=== PATIENT | female | born 1995 | race Caucasian/White ===

== ENCOUNTER 2016-04-16 16:56 | Emergency (ER) | payer MEDICAID ==
--- NOTE | 2016-04-16 20:44 | ERNOTE ---
ENT HPI Date of Service: 04/16/16 Time Seen by Provider: 04/16/16 20:18 Source: patient Exam Limitations: no limitations - Immun/Allergies/Home Medications Immunizations: IMMUNIZATION HX Immunizations Up to Date No History of Influenza Vaccine No Hx Pneumococcal Vaccination No Allergies/Adverse Reactions: Allergies Allergy/AdvReac Type Severity Reaction Status Date / Time nickel [Nickel] Allergy Intermediate Hives Verified 04/16/16 18:39 amoxicillin Allergy Hives Verified 04/16/16 18:39 amoxicillin trihydrate Allergy Hives Verified 04/16/16 18:39 [From Amoxil] Penicillins Allergy Swelling Verified 04/16/16 18:39 of Face meclizine AdvReac Headache Verified 04/16/16 18:39 Home Medications: HOME MEDICATIONS Citalopram Hydrobromide [Celexa] 10 mg PO DAILY #30 tablet 04/16/16 [Last Taken Unknown] - History of Present Illness Narrative: Pt. comes in with c/o chronic R ear fullness and dizziness for three months. Pt. has been seen in the [facility] several times for this and been diagnosed with an inner ear dysfunction. Pt. denies any significant change since onset of symptoms or any alleviating or aggravating factors and states that she is tired all of the time, hungry all of the time, and very stressed out to where she is forgetful. Pt. denies any recent illness. Review of Systems - Review of Systems Constitutional: Present: weakness, fatigue, malaise EYE: Present: no symptoms reported ENT: Present: ear pain - R, other - wisdom teeth coming in Respiratory: Present: no symptoms reported. Absent: shortness of breath, cough , wheezing Cardiology: Present: no symptoms reported. Absent: chest pain, palpitations, edema Gastrointestinal/Abdominal: Present: no symptoms reported. Absent: nausea, vomiting, diarrhea Genitourinary: Present: no symptoms reported. Absent: frequency, pain, dysuria , decreased urinary output Musculoskeletal: Present: no symptoms reported. 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 No infection noted at this time. Neck: Present: normal inspection, nontender. Absent: lymphadenopathy (R), lymphadenopathy (L) Respiratory: Present: no respiratory distress, normal breath sounds, no accessory muscle use, chest nontender, lungs clear Cardiovascular/Chest: Present: regular rate, rhythm, no murmur, normal peripheral pulses Gastrointestinal/Abdominal: Present: normal bowel sounds, nontender, nondistended, soft, no organomegaly Back Exam: Present: normal inspection Extremity Exam: Present: normal inspection Neurological Exam: Present: alert, oriented, normal mood/affect, no motor/ sensory deficits, tire mounter II-XII nml as tested, normal cerebellar test Skin Exam: Present: normal color, warm/dry. Absent: pallor, skin rash ED Progress - Results and Orders Patient's Lab Results:: I have reviewed the patient's lab results. - Vital Signs Patient's Vital Signs:: I have reviewed the patient's vital signs. Vital Signs: Vital Signs 04/16/16 18:31 Temperature 36.5 C Pulse Rate 74 Respiratory 18 Rate Blood Pressure 98/49 O2 Sat by Pulse 100 Oximetry - Progress/Reassessment Chief Complaint: Sore Throat Departure Clinical Impression: Pain, dental Adjustment disorder Qualifiers: Adjustment disorder type: with depressed mood Qualified Code(s): F43.21 - Adjustment disorder with depressed mood - Departure Disposition: Home self-care Condition: Good Instructions: Dysphoria Additional Instructions: Please start exercising daily. Eat mixed balance diet. Increase fluid intake. Follow up with dentist and Dr Cummings in 2-3 days. Referrals: Kim Cummings MD [Primary Care Provider] - Prescriptions: Citalopram Hydrobromide [Celexa] 10 mg PO DAILY #30 tablet
[2016-04-16 20:50] LABS: Hemoglobin 13.8 gm/dL (12.5-16.0); Mean Cell Volume 91.1 fl (78-100); Mean Corpuscular Hemoglobin 31.4 pg (27-31); Mean Corpuscular Hgb Conc 34.5 g/dl (32-36); Neutrophil # 2.3 K/mm3 (1.3-6.0); Neutrophil % 51.8 % (42-75.0); Platelet Count 194 K/mm3 (150-450); Red Blood Count 4.39 M/mm3 (4.2-5.4); Red Cell Distribution Width 11.6 % (11.5-14.0); White Blood Count 4.5 K/mm3 (4.0-10.5)
[2016-04-16 21:00] LABS: Urine Bilirubin Negative (NEGATIVE); Urine Blood Negative /ul (NEGATIVE); Urine Ketone Negative (NEGATIVE); Urine Nitrite Negative (NEGATIVE); Urine Protein Negative (NEGATIVE); Urine Specific Gravity >=1.030 SP.GR. (1.005-1.010); Urine Urobilinogen Normal (NORMAL)
[2016-04-16 21:09] LABS: Urine Color Yellow
[2016-04-16 21:10] LABS: Urine Appearance Slightly Cloudy; Urine Bacteria 1+; Urine RBC None Seen /hpf (0-5); Urine WBC None Seen /hpf (0-5)
[2016-04-16 21:18] LABS: Albumin * 3.8 gm/dl (3.4-5.0); Anion Gap 12.6 mmol/L (6.8-13.8); BUN/Creatinine Ratio 19.7 (9.0-21.6); Bilirubin, Total 0.5 mg/dL (0.0-1.1); Ca. Corrected For Albumin 8.4 mg/dL (8.4-10.2); Calcium * 8.6 mg/dL (7.9-10.9); Potassium 3.6 mmol/L (3.4-4.6); TSH * 1.65 uIU/mL (0.358-3.74); Total Protein 6.6 gm/dL (6.2-8.2)
[2016-04-16 21:56] VITALS: BP 104/54
== END 2016-04-16 22:10 | disposition home or self-care (01) ==
LOC: ER 16:56
DX: K08.89 Other specified disorders of teeth and supporting structures (principal); F43.21 Adjustment disorder with depressed mood; F17.210 Nicotine dependence, cigarettes, uncomplicated; Z87.440 Personal history of urinary (tract) infections; R53.83 Other fatigue

== ENCOUNTER 2016-04-25 19:25 | Emergency (ER) | payer MEDICAID ==
[2016-04-25 19:32] VITALS: BP 118/63
[2016-04-25] MEDS ORDERED: IBUPROFEN 600 MG TABLET PO ONE (19:50)
[2016-04-25] MEDS ORDERED: ACETAMINOPHEN 500 MG TABLET PO ONE (19:50)
[2016-04-25] MEDS ORDERED: CLINDAMYCIN HCL 150 MG CAPSULE PO ONE (19:50)
[2016-04-25] MEDS ORDERED: IBUPROFEN 600 MG TABLET ONE (19:53)
[2016-04-25] MEDS ORDERED: CLINDAMYCIN HCL 150 MG CAPSULE ONE (19:54)
--- NOTE | 2016-04-25 19:54 | ERNOTE ---
ENT HPI Date of Service: 04/25/16 Presenting Symptoms: dental pain, other - Sinus pain Time Seen by Provider: 04/25/16 19:39 Source: patient, RN notes reviewed Exam Limitations: no limitations - Immun/Allergies/Home Medications Immunizations: IMMUNIZATION HX Immunizations Up to Date No History of Influenza Vaccine No Hx Pneumococcal Vaccination No Allergies/Adverse Reactions: Allergies Allergy/AdvReac Type Severity Reaction Status Date / Time nickel [Nickel] Allergy Intermediate Hives Verified 04/16/16 18:39 amoxicillin Allergy Hives Verified 04/16/16 18:39 amoxicillin trihydrate Allergy Hives Verified 04/16/16 18:39 [From Amoxil] Penicillins Allergy Swelling Verified 04/16/16 18:39 of Face meclizine AdvReac Headache Verified 04/16/16 18:39 Home Medications: HOME MEDICATIONS Clindamycin HCl [Cleocin HCl] 300 mg PO QID #28 capsule 04/25/16 [Last Taken Unknown] - History of Present Illness Narrative: 20 y/o female to ED for sinus pain that began 2 days ago. She reports burning in her right nasal passage and maxillary sinus. She is also having pain between teeth #3 and 4. She reports that she is getting her wisdom teeth extracted next month. She took Tylenol and ibuprofen for pain yesterday, but has taken nothing today for her pain that she is rating as 9/10. ENT Location: Present: nose, dental, facial Associated Symptoms - ENT: Reports: malaise, poor solid intake, nasal congestion /drainage, facial pain/swelling, tooth pain, headache. Denies: fever, poor fluid intake, cough, voice change, sore throat Review of Systems - Review of Systems Constitutional: Present: See HPI EYE: Absent: eye pain, vision changes ENT: Present: nose pain, nose congestion, nasal drainage. Absent: ear pain, ear discharge, sore throat Respiratory: Absent: shortness of breath, cough Cardiology: Present: no symptoms reported Gastrointestinal/Abdominal: Absent: nausea, vomiting Genitourinary: Absent: other - possible Musculoskeletal: Absent: muscle pain, neck pain Skin: Absent: rash, lesions, lumps Neurological: Present: headache, dizziness/light-headedness Endocrine: Present: no symptoms reported Hematologic/Lymphatic: Present: no symptoms reported Psych: Present: no symptoms reported - Patient's Past Medical History Patient History - Medical: Anxiety, Depression, Migraines, UTI'S Patient History - Cardiac/Respiratory: No pertinent hx Patient History - Cancer: No Hx of Cancer Patient History - Surgical Procedures: T & A LMP (females 10-50): Implanaon - Social History Living Situations: home Smoking Status: Current every day smoker Alcohol Use: occasionally Drug Use: marijuana Physical Exam - Physical Exam General Appearance: Present: wd/wn, alert, no apparent distress Eye Exam: Normal inspection: bilateral, PERRL: bilateral Ears, Nose, Throat: Present: hearing grossly normal, normal pharynx, other - filling and new cavity in #3, maxillary sinus region tender to palpation. Absent: abnormal TM (R), abnormal TM (L), nasal congestion Neck: Present: normal inspection, nontender, supple Respiratory: Present: no respiratory distress, normal breath sounds, no accessory muscle use, lungs clear Cardiovascular/Chest: Present: regular rate, rhythm, no murmur Extremity Exam: Present: normal inspection, no edema Neurological Exam: Present: alert, oriented, normal mood/affect, no motor/ sensory deficits Skin Exam: Present: normal color, warm/dry ED Progress - Vital Signs Patient's Vital Signs:: I have reviewed the patient's vital signs. Vital Signs: Vital Signs 04/25/16 19:27 Temperature 36.7 C Pulse Rate 116 H Respiratory 18 Rate Blood Pressure 118/63 O2 Sat by Pulse 100 Oximetry - Progress/Reassessment Chief Complaint: Dental Problem Progress:: Unchanged Departure Clinical Impression: Infected dental caries, Sinus pain - Departure Disposition: Home Follow Up Needed Condition: Good Instructions: Dental Caries, [id number] Additional Instructions: Tylenol and/or ibuprofen for pain See a dentist Nasal saline spray for congestion Prescriptions: Clindamycin HCl [Cleocin HCl] 300 mg PO QID #28 capsule
== END 2016-04-25 20:00 | disposition home or self-care (01) ==
LOC: ER 19:25
DX: J34.89 Other specified disorders of nose and nasal sinuses (principal); K02.9 Dental caries, unspecified; K04.7 Periapical abscess without sinus; F17.210 Nicotine dependence, cigarettes, uncomplicated

== ENCOUNTER 2017-01-22 20:31 | Emergency (ER) | payer MEDICAID ==
[2017-01-22 20:53] LABS: Urine Bilirubin Negative (NEGATIVE); Urine Blood Negative /ul (NEGATIVE); Urine Ketone Negative (NEGATIVE); Urine Nitrite Negative (NEGATIVE); Urine Protein Negative (NEGATIVE); Urine Specific Gravity 1.025 SP.GR. (1.005-1.010); Urine Urobilinogen Normal (NORMAL)
[2017-01-22] MEDS ORDERED: KETOROLAC TROMETHAMINE 60 MG/2 ML VIAL IM ONE ×2 (21:01→21:03)
[2017-01-22] MEDS ORDERED: PROMETHAZINE HCL 25 MG/ML AMPUL IM ONE (21:01)
--- NOTE | 2017-01-22 21:02 | ERNOTE ---
ER Female HPI Date of Service: 01/22/17 Stated Complaint: PELVIC PAIN Presenting Symptoms: pelvic pain Time Seen by Provider: 01/22/17 20:55 Source: patient, RN notes reviewed, past records Exam Limitations: no limitations Immunizations: IMMUNIZATION HX Immunizations Up to Date Yes History of Influenza Vaccine No Hx Pneumococcal Vaccination No Allergies/Adverse Reactions: Allergies nickel [Nickel] Allergy (Intermediate, Verified 04/16/16 18:39) Hives amoxicillin Allergy (Verified 04/16/16 18:39) Hives amoxicillin trihydrate [From Amoxil] Allergy (Verified 04/16/16 18:39) Hives Penicillins Allergy (Verified 04/16/16 18:39) Swelling of Face hives meclizine Adverse Reaction (Verified 04/16/16 18:39) Headache Home Medications: HOME MEDICATIONS Dextroamphetamine/Amphetamine [Adderall 15 mg Tablet] 15 mg PO BID 01/22/17 [ Last Taken Unknown] clonazePAM [Klonopin] 1 mg PO HS 01/22/17 [Last Taken Unknown] clonazePAM [Klonopin] 1 mg PO PRN PRN 01/22/17 [Last Taken Unknown] metroNIDAZOLE [Flagyl] 500 mg PO Q12H #14 tab 01/22/17 [Last Taken Unknown] - History of Present Illness Narrative: 21 year old female presents to the ED for pelvic pain that has been ongoing for several months. She was seen in gynecology on 12/28/16. She was treated for PID with Rocephin and Zithromax without improvement. She was tested for gonorrhea and chlamydia. Both were negative. She has a Nexplanon. She has had this for approximately 18 months and has irregular menses. She denies vaginal discharge or itching/irritation. She does report dyspareunia. Timing: Present: getting worse, intermittent Quality: Present: severe, cramping Onset Location: Present: suprapubic Radiation: Present: none Sexual [place] History: Present: less than 2 months ago, single partner Prior Treatment: Present: recently seen, treated by physician Review of Systems - Review of Systems Constitutional: Absent: fever, chills, malaise EYE: Present: no symptoms reported ENT: Present: no symptoms reported Respiratory: Present: no symptoms reported Cardiology: Present: no symptoms reported Gastrointestinal/Abdominal: Present: nausea. Absent: vomiting, abdominal pain Genitourinary: Absent: frequency, dysuria, discharge Musculoskeletal: Absent: back pain, muscle pain Skin: Absent: lesions, lumps, change in color Neurological: Absent: headache, dizziness/light-headedness Endocrine: Present: no symptoms reported Hematologic/Lymphatic: Present: no symptoms reported Psych: Present: no symptoms reported - Patient's Past Medical History Patient History - Medical: Anxiety, Depression, Migraines, UTI'S Patient History - Cardiac/Respiratory: No pertinent hx Patient History - Cancer: No Hx of Cancer Patient History - Surgical Procedures: T & A Patient History - Other: None LMP (females 10-50): last week LMP (Calendar): 01/17/17 - Social History Living Situations: home Psych History: Hx of Anxiety, Hx of Depression Smoking Status: Current every day smoker Have you smoked in the past 12 months: Yes Do you dip or chew tobacco: No Alcohol Use: sober Drug Use: none - Immunizations Immunizations Up to Date: Yes Hx Pneumococcal Vaccination: No History of Influenza Vaccine: No Physical Exam - Physical Exam General Appearance: Present: wd/wn, alert, mild distress, other - tearful, appears uncomfortable Neck: Present: normal inspection, nontender, supple Respiratory: Present: no respiratory distress, normal breath sounds, no accessory muscle use, lungs clear Cardiovascular/Chest: Present: regular rate, rhythm, no murmur Gastrointestinal/Abdominal: Present: normal bowel sounds, nondistended, soft, tenderness - suprapubic. Absent: rebound, mass Pelvic Exam: Present: discharge - thick, white, lesions - cervix with friable appearance, cervical motion tendernes, tender adnexa, tender uterus. Absent: active bleeding Back Exam: Present: normal inspection, no CVA tenderness Extremity Exam: Present: normal inspection, normal range of motion Neurological Exam: Present: alert, oriented, normal mood/affect, no motor/ sensory deficits Skin Exam: Present: normal color, warm/dry ED Progress - Results and Orders Patient's Lab Results:: I have reviewed the patient's lab results. - Vital Signs Patient's Vital Signs:: I have reviewed the patient's vital signs. Vital Signs: Vital Signs 01/22/17 20:35 Temperature 36.4 C L Pulse Rate 86 Respiratory 16 Rate Blood Pressure 107/54 O2 Sat by Pulse 98 Oximetry - Progress/Reassessment Chief Complaint: Genitourinary Problem Progress:: Improved Departure Clinical Impression: Bacterial vaginosis - Departure Disposition: Home Follow Up Needed Condition: Stable Instructions: Bacterial Vaginosis Additional Instructions: Abstain from intercourse during treatment Do not drink alcohol while on metronidazole Follow up with Dr. Oliveira in 10 to 14 days, or before if symptoms worsen Referrals: Pedro Oliveira MD [Staff Physician] - Prescriptions: metroNIDAZOLE [Flagyl] 500 mg PO Q12H #14 tab
[2017-01-22] MEDS ORDERED: PROMETHAZINE HCL 25 MG/ML AMPUL ONE (21:03)
[2017-01-22 21:04] LABS: Urine Appearance Slightly Cloudy; Urine Bacteria 1+; Urine Color Dark Yellow; Urine RBC None Seen /hpf (0-5); Urine WBC TRACE /hpf (0-5)
[2017-01-22 21:12] LABS: Hematocrit 36.2 % (37.0-47.0); Hemoglobin 12.7 gm/dL (12.5-16.0); Mean Cell Volume 92.6 fl (78-100); Mean Corpuscular Hemoglobin 32.5 pg (27-31); Mean Corpuscular Hgb Conc 35.1 g/dl (32-36); Mean Platelet Volume 10.5 fl (6.0-9.5); Neutrophil % 45.3 % (42-75.0); Platelet Count 220 K/mm3 (150-450); Red Blood Count 3.91 M/mm3 (4.2-5.4); Red Cell Distribution Width 11.4 % (11.5-14.0); White Blood Count 6.6 K/mm3 (4.0-10.5)
[2017-01-22 21:26] LABS: Albumin * 3.7 gm/dl (3.4-5.0); Anion Gap 11.8 mmol/L (6.8-13.8); BUN/Creatinine Ratio 16.4 (9.0-21.6); Bilirubin, Total 0.4 mg/dL (0.0-1.1); Ca. Corrected For Albumin 8.3 mg/dL (8.4-10.2); Calcium * 8.4 mg/dL (7.9-10.9); Carbon Dioxide 26.6 mmol/L (24-32.6); Potassium 3.4 mmol/L (3.4-4.6); Total Protein 6.4 gm/dL (6.2-8.2)
[2017-01-22] MEDS ORDERED: metroNIDAZOLE 500 MG TABLET PO ONE (22:17)
[2017-01-22] MEDS ORDERED: metroNIDAZOLE 500 MG TABLET ONE (22:19)
[2017-01-22 22:32] VITALS: BP 106/64
== END 2017-01-22 22:41 | disposition home or self-care (01) ==
LOC: ER 20:31
DX: N76.0 Acute vaginitis (principal); B96.89 Other specified bacterial agents as the cause of diseases classified elsewhere; Z87.440 Personal history of urinary (tract) infections; F17.200 Nicotine dependence, unspecified, uncomplicated; F41.9 Anxiety disorder, unspecified

== ENCOUNTER 2017-02-07 11:43 | Emergency (ER) | payer MEDICAID ==
--- NOTE | 2017-02-07 12:02 | ERNOTE ---
ER Female HPI Date of Service: 02/07/17 Stated Complaint: PELVIC PAIN Presenting Symptoms: pelvic pain, vaginal discharge, dysuria Time Seen by Provider: 02/07/17 11:52 Source: patient Immunizations: IMMUNIZATION HX Immunizations Up to Date Yes History of Influenza Vaccine No Hx Pneumococcal Vaccination Yes Allergies/Adverse Reactions: Allergies nickel [Nickel] Allergy (Intermediate, Verified 02/07/17 11:51) Hives amoxicillin Allergy (Verified 02/07/17 11:51) Hives amoxicillin trihydrate [From Amoxil] Allergy (Verified 02/07/17 11:51) Hives Penicillins Allergy (Verified 02/07/17 11:51) Swelling of Face hives meclizine Adverse Reaction (Verified 02/07/17 11:51) Headache Home Medications: HOME MEDICATIONS Dextroamphetamine/Amphetamine [Adderall 15 mg Tablet] 15 mg PO DAILY 01/22/17 [ Last Taken Unknown] clonazePAM [Klonopin] 1 mg PO HS 01/22/17 [Last Taken Unknown] clonazePAM [Klonopin] 1 mg PO PRN PRN 01/22/17 [Last Taken Unknown] Azithromycin [Zithromax] 500 mg PO NOW #6 tab 02/07/17 [Last Taken Unknown] HYDROcodone/ACETAMINOPHEN [Hydrocodon-Acetaminophen 5-325] 1 each PO TID PRN # 20 tablet 02/07/17 [Last Taken Unknown] - History of Present Illness Narrative: patient states she has been treating PID BV for that 2 months. today come in pelvic pain and cramping. patient states pain is sharp, started around 730. patient states there is a dull pain that is constant and sharp pain comes and goes. Timing: Present: constant, getting worse Quality: Present: moderate, stabbing Onset Location: Present: suprapubic, vaginal Radiation: Present: vaginal Activities at Onset: Present: none Prior Abdominal Problems: Present: similar symptoms, other - hx of PID and BV with in the last 2 months Sexual [place] History: Present: not active Modifying Factors - (Worsens): Present: movement Associated Symptoms: Present: abdominal pain, dysuria. Absent: fever/chills, diaphoresis, nausea, vomiting, urinary frequency, loss of bladder control, low back pain Review of Systems - Review of Systems Constitutional: Present: See HPI. Absent: fever EYE: Present: no symptoms reported ENT: Present: no symptoms reported Respiratory: Present: no symptoms reported Cardiology: Present: no symptoms reported Gastrointestinal/Abdominal: Present: no symptoms reported Genitourinary: Present: See HPI, dysuria Musculoskeletal: Present: no symptoms reported Skin: Present: no symptoms reported Neurological: Present: no symptoms reported Endocrine: Present: no symptoms reported Hematologic/Lymphatic: Present: no symptoms reported Psych: Present: no symptoms reported All Other Systems: All systems neg except as marked - Patient's Past Medical History Patient History - Medical: Anxiety, Depression, Migraines, UTI'S Patient History - Cardiac/Respiratory: No pertinent hx Patient History - Cancer: No Hx of Cancer Patient History - Surgical Procedures: T & A Patient History - Other: None LMP (females 10-50): few days ago - Social History Living Situations: home Psych History: Hx of Anxiety, Hx of Depression Smoking Status: Current every day smoker Alcohol Use: none Drug Use: marijuana - Immunizations Immunizations Up to Date: Yes Hx Pneumococcal Vaccination: Yes History of Influenza Vaccine: No Physical Exam - Physical Exam Narrative: patient appears to have intermittent abd cramps and is tender in her pelvic region. pelvic exam completes. cervical motion tenderness, actively on her menses. did have intercourse 2 days ago. General Appearance: Present: wd/wn, alert, mild distress Head Exam: Present: normal inspection, no evidence of injury Eye Exam: Normal inspection: bilateral, PERRL: bilateral, EOMI: bilateral Ears, Nose, Throat: Present: normal ENT inspection, normal pharynx Neck: Present: normal inspection, nontender, supple, full range of motion Respiratory: Present: no respiratory distress, normal breath sounds, no accessory muscle use, chest nontender, lungs clear Cardiovascular/Chest: Present: regular rate, rhythm, no murmur, normal peripheral pulses Gastrointestinal/Abdominal: Present: normal bowel sounds, nondistended, soft, no organomegaly, tenderness. Absent: McBurney sign, Obturator sign, Medina sign , Psoas sign Rectal Exam: Present: nontender, normal rectal tone, hemorrhoids Pelvic Exam: Present: active bleeding, cervical motion tendernes, tender adnexa , tender uterus. Absent: discharge, lesions Back Exam: Present: normal inspection, normal range of motion, no CVA tenderness , no vertebral tenderness Extremity Exam: Present: normal inspection, non-tender, normal range of motion, no edema Neurological Exam: Present: alert, oriented, normal mood/affect, no motor/ sensory deficits Skin Exam: Present: normal color, warm/dry Lymphatic Exam: Present: no adenopathy ED Progress - Date and Time Seen: Date and Time: 02/07/17 12:54 after speaking with neuropsychology division chief OB Dr Oliveira, he agrees to a pelvic and abd US for further testing r/t her hx of PID and BV. Patient agrees to this procedure at this time. Pain medication helping her at this time. patient is comfortable and relaxed in her bed. - Results and Orders Patient's Lab Results:: I have reviewed the patient's lab results. - Vital Signs Patient's Vital Signs:: I have reviewed the patient's vital signs. Vital Signs: Vital Signs 02/07/17 11:46 Temperature 36.7 C Pulse Rate 115 H Respiratory 18 Rate Blood Pressure 107/83 O2 Sat by Pulse 100 Oximetry - CT/Ultrasound CT/Ultrasound Narrative: INDICATION: worsening PID COMPARISON: Concurrent ultrasound of the abdomen TECHNIQUE: US Pelvic Complete *, US Transvaginal * FINDINGS: Transabdominal and transvaginal ultrasound was performed. Transvaginal ultrasound was performed in order to adequately assess the adnexa. The uterus is anteverted. It measures 7.4 x 4.8 x 3.3 cm. It is grossly normal. Endometrium measures 4 mm which is within normal limits. Right ovary measures 4.5 x 3.9 x 2.2 cm. Left ovary measures 2.7 x 2.1 x 2 cm. Both ovaries demonstrate normal vascularity. There is a 3.1 x 1.5 x 3 cm simple appearing right ovarian cyst. There is some free fluid within the cul-de-sac. IMPRESSION: 1. Simple appearing 3 cm right ovarian cyst, otherwise unremarkable. Electronically signed by Dae Fair M.D.. Dae Fair MD Indication: worsening PID Comparison: None Technique: US Abdomen Complete Findings: The liver is normal size and echotexture and is without mass or ductal dilation. The gallbladder is well distended with normal contour and wall thickness. No gallstones, pericholecystic fluid or sonographic Medina's sign. No extra hepatic biliary ductal dilation. The CHD = 0.21 cm, the proximal CBD = 0.23 cm and the distal CBD = 0.27 cm. The pancreas is normal size and without mass or ductal dilation. The spleen is normal size without mass and measures 9.6 x 4.6 x 4.8 cm. The kidneys are normal size and echotexture and are without mass, nephrolithiasis or hydronephrosis. The right kidney measures 9.6 cm while the left kidney measures 11.3 cm. The portal veins, aorta and IVC were seen IMPRESSION: Unremarkable study of the abdomen. Electronically signed by Dae Fair M.D.. - Progress/Reassessment Chief Complaint: Genitourinary Problem Progress:: Improved Plan - Plan Plan: After speaking with Dr. Rider regarding patient's ultrasound results. He suggested patient was given 1 g of IV Rocephin and azithromycin 500 mg for 2 days and then 250 for the next 5. He also suggested pain medicine and that she should follow up with him for an office visit on Saturday. Patient educated that she can return to the emergency room if pain continues or if she starts developing a fever chills nausea vomiting. Departure Clinical Impression: PID (acute pelvic inflammatory disease) Ovarian cyst Qualifiers: Laterality: right Qualified Code(s): N83.201 - Unspecified ovarian cyst, right side - Departure Disposition: Home Follow Up Needed Condition: Stable Instructions: Pelvic Pain, Female, [id number], Abdominal or Pelvic Ultrasound , [id number], Pelvic Pain, Female, Pelvic Inflammatory Disease Additional Instructions: Continue any previous medications. Take antibiotics as prescribed. Start your azithromycin tomorrow. Return to the emergency room if pain becomes worse or you are unable to be controlled with pain medication. Make a follow-up appointment with Dr. guerrero for February 11. Referrals: Kim Cummings MD [Primary Care Provider] - Pedro Oliveira MD [Staff Physician] - 02/11/17 (call tomorrow and make an appointment for saturday. ) Prescriptions: Azithromycin [Zithromax] 500 mg PO NOW #6 tab HYDROcodone/ACETAMINOPHEN [Hydrocodon-Acetaminophen 5-325] 1 each PO TID PRN # 20 tablet PRN Reason: Pain
[2017-02-07] MEDS ORDERED: NORMAL SALINE 1,000 ML IV ONE (12:14)
[2017-02-07 12:23] LABS: Hematocrit 36.3 % (37.0-47.0); Hemoglobin 13.3 gm/dL (12.5-16.0); Mean Cell Volume 88.8 fl (78-100); Mean Corpuscular Hemoglobin 32.5 pg (27-31); Mean Corpuscular Hgb Conc 36.6 g/dl (32-36); Mean Platelet Volume 9.9 fl (6.0-9.5); Neutrophil # 4.7 K/mm3 (1.3-6.0); Neutrophil % 73.7 % (42-75.0); Platelet Count 264 K/mm3 (150-450); Red Blood Count 4.09 M/mm3 (4.2-5.4); Red Cell Distribution Width 11.2 % (11.5-14.0); White Blood Count 6.3 K/mm3 (4.0-10.5)
[2017-02-07 12:32] LABS: Urine Bilirubin Negative (NEGATIVE); Urine Blood Negative /ul (NEGATIVE); Urine Ketone 15 mg/dL (NEGATIVE); Urine Nitrite Negative (NEGATIVE); Urine Protein Negative (NEGATIVE); Urine Specific Gravity 1.025 SP.GR. (1.005-1.010); Urine Urobilinogen Normal (NORMAL)
[2017-02-07 12:36] LABS: Cocaine Ur Negative (NEGATIVE); Urine Barbiturate Negative (NEGATIVE); Urine Benzodiazepines Negative (NEGATIVE); Urine Opiates Negative (NEGATIVE); Urine PCP Negative (NEGATIVE)
[2017-02-07 12:41] LABS: Urine THC Positive (NEGATIVE)
[2017-02-07 12:43] LABS: Urine Appearance Clear; Urine Bacteria TRACE; Urine Color Yellow; Urine RBC None Seen /hpf (0-5); Urine WBC 0-5 /hpf (0-5)
[2017-02-07] MEDS ORDERED: KETOROLAC TROMETHAMINE 30 MG/ML VIAL IV ONE (12:46)
[2017-02-07] MEDS ORDERED: KETOROLAC TROMETHAMINE 30 MG/ML VIAL ONE (12:47)
[2017-02-07 13:11] LABS: Albumin * 3.8 gm/dl (3.4-5.0); Anion Gap 18.2 mmol/L (6.8-13.8); BUN/Creatinine Ratio 17.2 (9.0-21.6); Bilirubin, Total 0.6 mg/dL (0.0-1.1); Ca. Corrected For Albumin 8.7 mg/dL (8.4-10.2); Calcium * 8.9 mg/dL (7.9-10.9); Carbon Dioxide 22.2 mmol/L (24-32.6); Potassium 3.4 mmol/L (3.4-4.6); Total Protein 6.8 gm/dL (6.2-8.2)
[2017-02-07 16:14] VITALS: BP 99/55
[2017-02-07] MEDS ORDERED: AZITHROMYCIN 250 MG TABLET PO ONE (16:34)
[2017-02-07] MEDS ORDERED: AZITHROMYCIN 250 MG TABLET ONE (16:41)
== END 2017-02-07 16:48 | disposition home or self-care (01) ==
LOC: ER 11:43
DX: N73.9 Female pelvic inflammatory disease, unspecified (principal); N83.201 Unspecified ovarian cyst, right side; F17.200 Nicotine dependence, unspecified, uncomplicated